=== PATIENT | female | born 1980 | race Two or more races ===

== ENCOUNTER 2017-08-25 08:46 | Outpatient (CLI) | payer OTHER | END 2017-08-25 09:45 | disposition home or self-care (01) | LOC: SONOGRAMA 08:46 | DX: D24.9 Benign neoplasm of unspecified breast (principal) ==

== ENCOUNTER 2017-09-08 15:02 | Outpatient (CLI) | payer OTHER | END 2017-09-08 16:20 | disposition home or self-care (01) | LOC: MAMO-SONO 15:02 | DX: Z80.3 Family history of malignant neoplasm of breast (principal); N60.11 Diffuse cystic mastopathy of right breast; N60.12 Diffuse cystic mastopathy of left breast ==

== ENCOUNTER 2017-09-09 10:59 | Outpatient (CLI) | payer OTHER | END 2017-09-09 13:43 | disposition home or self-care (01) | LOC: SONOGRAMA 10:59 | DX: N63.24 Unspecified lump in the left breast, lower inner quadrant (principal); N63.21 Unspecified lump in the left breast, upper outer quadrant; N60.11 Diffuse cystic mastopathy of right breast; N60.12 Diffuse cystic mastopathy of left breast ==